=== PATIENT | male | born 1960 | race Two or more races ===

== ENCOUNTER 2019-03-17 11:58 | Emergency (ER) | payer OTHER, SELFPAY ==
[2019-03-17 11:59] VITALS: BP 138/77; PULSE 89; RESP 18; TEMP 36.6; O2SAT 98; BMI 23.6
--- NOTE | 2019-03-17 12:23 | ED.VIS.GEN ---
History of Present Illness Chief Complaint: Headache Detail of Chief Complaint: Vertex of head initially Informant: Patient Onset: Days - Onset 3 days ago March 14 Context: Sudden Onset Timing: Intermittent - Lasting 3 to 4 hours per episode Quality: Pain that he localizes to the vertex bifrontal Location: Vertex and bifrontal Current Severity: Mild Maximum Severity: Severe Worsened by: Nothing Relieved by: Nothing Associated Symptoms: No photophobia, sonophobia positive neck stiffness Narrative: Patient is a 58-year-old male who was sent by his primary care physician for evaluation of headache. Onset of headache 3 days ago. Headache is intermittent described as pain he localizes over the vertex and bifrontal area. He denies double vision or loss of vision. He does report blurred vision. He denies ear pain, decreased hearing or ringing in his ears. He denies rhinorrhea, congestion or postnasal drainage. Denies sore throat. Denies trouble with speech or swallowing. Denies cardiac respiratory symptoms. He did report groin pain centered prostatitis. He is on day 10 of Bactrim. He states his symptoms have improved markedly. Prior similar symptoms: No Recent Illness/Hospitalization: Yes - Past Medical History (1) Acute prostatitis Status: Acute Past Medical History - Allergies and Home Meds Allergies/Adverse Reactions: Allergies No Known Allergies Allergy (Verified 03/17/19 12:01) Primary Care Physician: Felton De Jesus MD [Primary Care Provider] - Prior records reviewed: No Past Medical History: None Surgical History: no surgical history Lives: Spouse/ Significant Other Smoking Status: Never smoker Alcohol: None Drugs: None Review of Systems General: Denies: Chills, Fever, Malaise, Sweats Eyes: Reports: Blurred Vision - bilaterally. Denies: Visual changes - bilaterally, Diplopia ENT: Denies: Bilateral ear pain, Rhinorrhea, Sore throat Cardiovascular: Denies: Chest pain, Palpitations Respiratory: Denies: Dyspnea, Cough, Dyspnea on exertion Gastrointestinal: Denies: Abdominal pain, Nausea, Vomiting, Diarrhea, Melena, Hematochezia Genitourinary: Denies: Dysuria, Hematuria, Frequency Musculoskeletal: Denies: Myalgias, Arthralgias, Neck pain, Back pain, Swelling, Extremity Pain Skin: Denies: Rash, Wounds Neurological: Reports: Headache. Denies: Weakness, Parasthesia, Numbness Hematologic: Denies: Easy bruising, Easy bleeding Physical Exam Vital Signs/Narrative: Vital Signs Temp Pulse Resp BP Pulse Ox 03/17/19 11:59 98 F 89 18 138/77 H 98 Inital Vital Signs reviewed: Yes General: Well nourished, Well developed, No Acute Distress Head: Normocephalic, Atraumatic Eyes: Perrl, EOMI. Negative for: Pale conjunctiva, Scleral icterus ENT: Moist mucous membranes, No rhinorrhea, TM's clear. Negative for: Dry mucous membranes, Nasal congestion, Sinus tenderness Neck: Supple, Nontender, No lymphadenopathy, No JVD, - - Neck is supple with full range of motion without hesitation or grimacing. Cardiovascular: Regular rate, Regular rhythm, No murmurs, Normal S1, Normal S2 Respiratory: No distress, CTA bilaterally, Chest nontender Abdomen: Soft, Nontender, Nondistended, Normal bowel sounds Back: Nontender, Normal Inspection Extremities: Nontender, No edema Skin: Normal color, No rash Neurological: Alert, Oriented x3, Cranial nerves II-XII grossly intact, Normal Strength, Normal Sensation, Normal DTR - There is no clonus or Babinski sign., Normal Gait, - - DTRs are 2+ and symmetric upper and lower extremity and right to left. Psychological: Normal affect, Normal Mood Diagnostic/Tx/Re-eval - Medical Decision Making With atypical headache. Doubt aseptic meningitis secondary to Bactrim. Patient describes rigors. He does not have rigors he has tremors. Her graph laboratory tests were not obtained. He was medicated with IV Toradol, Benadryl and Reglan. He will be reassessed in 1 hour. He was reassessed at 1305. He is sitting up smiling no distress. Headache is resolved. Plan is to discharge to home. ED Disposition - Plan for ED Patient: Disposition: Home or Assisted Living Diagnosis: Head pain cephalgia Referrals: Felton De Jesus MD [Primary Care Provider] - As Needed
[2019-03-17] MEDS: DiphenhydrAMINE 50 MG/ML Syringe 25 MG IV (12:30)
[2019-03-17] MEDS: Metoclopramide 10 MG/2 ML Vial IV (12:30)
[2019-03-17] MEDS: Ketorolac 30 MG/ML Syringe 15 MG IV (12:30)
[2019-03-17 13:20] VITALS: BP 117/75; PULSE 68; RESP 15; O2SAT 97
== END 2019-03-17 13:23 | disposition home or self-care (01) ==
PROVIDERS: Emergency Provider Emergency Medicine; Family Provider Family Medicine; PCP Family Medicine
DX: R51 Headache (principal); N41.0 Acute prostatitis
CPT/HCPCS: 96374; 96375; 99283; A4216